=== PATIENT | female | born 1985 | race Caucasian/White ===

== ENCOUNTER 2019-06-04 02:58 | Emergency (ER) | payer OTHER ==
[2019-06-04] MEDS ORDERED: diazePAM 2 MG TABLET PO ONE (03:05)
--- NOTE | 2019-06-04 03:07 | PDOC ---
History of Present Illness - General Stated Complaint: SOB - History of Present Illness Initial Comments: 06/04/19 03:27 34 year old woman with a history of bipolar disorder(off Risperidone) who presents with shortness of breath and feeling like she is going to . Patient' s father reports that she is a heavy smoker (3ppd) and drinker (6 pack per day) and that she has been ill for the past 2 weeks with vomiting and productive cough, but he does not know if she has had a fever. The patient will provide any further history and states that she " is ." ROS - unable to obtain, patient unwilling to participate PE GENERAL: Awake, alert, in no acute distress HEAD: No signs of trauma, normocephalic, atraumatic EYES: EOMI, sclera anicteric, conjunctiva clear ENT: oropharynx clear without exudates. Moist mucosa NECK: Normal ROM, supple LUNGS: No distress, speaks full sentences, coarse breath sounds HEART: Regular rate and rhythm, normal S1 and S2, no murmurs, rubs or gallops, peripheral pulses normal and equal bilaterally. ABDOMEN: Soft, nontender No guarding, no rebound. No masses EXTREMITIES : Normal inspection, Normal range of motion, no edema. No clubbing or cyanosis. NEUROLOGICAL: Cranial nerves II through XII grossly intact. Normal speech, normal gait, no focal sensorimotor deficits SKIN: Warm, Dry, normal turgor, no rashes or lesions noted MDM DDX including but not limited to: r/o pna vs copd anxiety attack ED Course: labs, preg, ns cxr labs wnl cxr with no acute findings d/c with internal medicine clinic or pcp f/u psych referral father agrees with alyssa Estrada PGY2 Emergency Medicine Past History - Past Medical History Allergies/Adverse Reactions: Allergies Allergy/AdvReac Type Severity Reaction Status Date / Time No Known Allergies Allergy Verified 07/28/15 11:34 Home Medications: Ambulatory Orders Risperidone [Risperdal] 3 mg PO DAILY #6 tablet 07/28/15 Psychiatric Problems: Yes (paranoid schiophrenia) - Psycho Social/Smoking Cessation Hx Smoking History: Current every day smoker Number of Cigarettes Smoked Daily: 20 Hx Alcohol Use: No Drug/Substance Use Hx: No Substance Use Type: None ED Treatment Course - LABORATORY CBC & Chemistry Diagram: 06/04/19 04:00 06/04/19 04:00 Discharge - Discharge Information Problems reviewed: Yes Clinical Impression/Diagnosis: Shortness of breath Condition: Stable Disposition: HOME - Admission No - Follow up/Referral Referrals: Ward Azar MD [Staff Physician] - [facility] [place] [facility] [place] [Provider Group] - Patient Discharge Instructions Patient Printed Discharge Instructions: DI for Shortness of Breath, DI for Bipolar Disorder Additional Instructions: You were seen in the ED for complaints of shortness of breath In the ED you were evaluated with labwork and imaging Your results were unremarkable There does not appear to be an acute need for immediate hospitalization. You are advised to follow up with your Primary Care Physician within 1 week. You were given a referral to Psychiatry and the Internal Medicine Clinic and should follow up within 1 week. Return to the ED immediately if you experience shortness of breath, chest pain, fevers or any other concerning symptoms - Post Discharge Activity
[2019-06-04 03:22] VITALS: TEMP 98.1; BMI 23.5
--- NOTE | 2019-06-04 03:22 | PDOC ---
Attending Attestation - Resident Resident Name: Jazmin Estrada - ED Attending Attestation I have performed the following: I have examined & evaluated the patient, The case was reviewed & discussed with the resident, I agree w/resident's findings & plan - HPI HPI: 06/04/19 03:22 Pt is hyperventilatinga dn yelling that she cannot breathe. Pt smokes heavily and drinks alcohol, as per her dad. She is having a panic attach. - Physicial Exam PE: 06/04/19 20:56 Pt smells of nicotine and cigarettes. Pt bipolar and anxious Pt breathing normally; clear lungs; however hyperventilating Pt has no abd pain and no flank pain no edema of extremities and neuologically intact - Medical Decision Making 06/04/19 05:34 2mg valium worked for patient Pt smokes 2-3 PPD and she drinks alcohol. 06/04/19 20:58 Pt feels better with treatment in the ER and she is ready to go home. Home with her dad.
[2019-06-04] MEDS ORDERED: SODIUM CHLORIDE 0.9% 500 ML INFUS.BAG IV ONE (03:36)
[2019-06-04] MEDS ORDERED: diazePAM 2 MG TABLET ONE (03:47)
[2019-06-04 04:09] LABS: BASO % 0.7 % (0-2.0); EOS % 0.3 % (0-4.5); HEMATOCRIT 49.3 % (32.4-45.2); HEMOGLOBIN 16.8 GM/dL (10.7-15.3); LYMPH % 20.7 % (8-40); MCH 33.4 pg (25.7-33.7); MCHC 34.1 g/dl (32.0-36.0); MEAN CELL VOLUME 98.2 fl (80-96); MEAN PLT VOLUME 8.1 fl (7.5-11.1); MONO % 9.9 % (3.8-10.2); NEUT % 68.4 % (42.8-82.8); PLATELET COUNT 251 K/MM3 (134-434); RBC 5.02 M/mm3 (3.60-5.2); RDW 12.3 % (11.6-15.6); WHITE BLOOD COUNT 6.2 K/mm3 (4.0-10.0)
[2019-06-04 04:43] LABS: BILIRUBIN,TOTAL 0.9 mg/dL (0.2-1); BLOOD UREA NITROGEN 4.7 mg/dL (7-18); CALCIUM 9.5 mg/dL (8.5-10.1); CREATININE 0.6 mg/dL (0.55-1.3); POTASSIUM 4.1 mmol/L (3.5-5.1); TOT PROT 7.7 g/dl (6.4-8.2)
[2019-06-04 06:11] VITALS: BP 110/63; PULSE 59
== END 2019-06-04 06:00 | disposition home or self-care (01) ==
LOC: JER 02:58
DX: F41.0 Panic disorder [episodic paroxysmal anxiety] (principal); F31.9 Bipolar disorder, unspecified; F10.10 Alcohol abuse, uncomplicated; F17.210 Nicotine dependence, cigarettes, uncomplicated
CPT/HCPCS: 36415; 71045-TC-FY; 80053; 84702; 85025; 99283-25

== ENCOUNTER 2020-05-09 09:32 | Emergency (ER) | payer OTHER ==
[2020-05-09 10:48] VITALS: BMI 22.7
[2020-05-09 11:02] LABS: BASO % 1.5 % (0-2.0); HEMATOCRIT 51.9 % (32.4-45.2); HEMOGLOBIN 17.6 GM/dL (10.7-15.3); LYMPH % 3.6 % (8-40); MCH 34.4 pg (25.7-33.7); MCHC 33.9 g/dl (32.0-36.0); MEAN CELL VOLUME 101.5 fl (80-96); MEAN PLT VOLUME 7.9 fl (7.5-11.1); MONO % 7.8 % (3.8-10.2); NEUT % 87.1 % (42.8-82.8); PH,URINE 5.5 (5.0-8.0); PLATELET COUNT 245 K/MM3 (134-434); RBC 5.11 M/mm3 (3.60-5.2); RDW 14.3 % (11.6-15.6); URINE APPEARANCE CLEAR; URINE BILIRUBIN NEGATIVE (NEGATIVE); URINE COLOR YELLOW; URINE GLUCOSE (UA) 1+ (NEGATIVE); URINE KETONE TRACE (NEGATIVE); URINE LEUK ESTERASE NEGATIVE (NEGATIVE); URINE NITRITE NEGATIVE (NEGATIVE); URINE PROTEIN NEGATIVE (NEGATIVE); URINE UROBILINOGEN 0.2 mg/dL (0.2-1.0); WHITE BLOOD COUNT 8.1 K/mm3 (4.0-10.0)
[2020-05-09 11:15] LABS: CHLORIDE 100 mmol/L (98-107); POTASSIUM 4.1 mmol/L (3.5-5.1); SODIUM 137 mmol/L (136-145)
[2020-05-09 11:16] LABS: COCAINE, UR NEGATIVE ng/ml (CUTOFF=300); URINE BENZODIAZEPINES NEGATIVE ng/ml (CUTOFF=200)
[2020-05-09 11:17] LABS: METHADONE, UR NEGATIVE ng/ml (CUTOFF=300); OPIATES, URI NEGATIVE ng/ml (CUTOFF=300); PHENCYCLIDINE,URINE NEGATIVE ng/ml (CUTOFF=25); URINE AMPHETAMINES NEGATIVE ng/ml (CUTOFF=500)
[2020-05-09 11:18] LABS: ALBUMIN 4.1 g/dl (3.4-5.0); ANION GAP 12 MMOL/L (8-16); CALCIUM 9.4 mg/dL (8.5-10.1); CO2 25 mmol/L (21-32); GLUCOSE,RANDOM 183 mg/dL (74-106); URINE BARBITURATES NEGATIVE ng/ml (CUTOFF=200)
[2020-05-09 11:21] LABS: CREATININE 0.9 mg/dL (0.55-1.3); SGOT/AST 95 U/L (15-37); SGPT/ALT 124 U/L (13-61)
[2020-05-09 11:23] LABS: ALK PHOS 84 U/L (45-117); BILIRUBIN,TOTAL 0.5 mg/dL (0.2-1); TOT PROT 8.5 g/dl (6.4-8.2)
[2020-05-09 11:27] LABS: N-TERMINAL BNP 19.9 pg/ml (5-125)
[2020-05-09] MEDS ORDERED: SODIUM CHLORIDE 1,000 ML IV STA (12:43)
[2020-05-09 14:21] VITALS: BP 125/72; PULSE 69; TEMP 97.2
== END 2020-05-09 14:20 | disposition home or self-care (01) ==
LOC: JER 09:32
PROC: 3E0337Z Introduction of Electrolytic and Water Balance Substance into Peripheral Vein, Percutaneous Approach (ICD-10-PCS; principal; 2020-05-09)
DX: R06.02 Shortness of breath (principal); F10.10 Alcohol abuse, uncomplicated
CPT/HCPCS: 36415; 71046-TC-FY; 80053; 80307; 81003; 83880; 84484; 84703; 85025; 87086; 93005; 93010; 96360; 99285-25

== ENCOUNTER 2020-05-20 03:20 | Emergency (ER) | payer OTHER ==
[2020-05-20 03:37] VITALS: BMI 21.9
[2020-05-20] MEDS ORDERED: SODIUM CHLORIDE 0.9% 500 ML INFUS.BAG IV ONE (04:06)
[2020-05-20 04:56] LABS: BASO % 1.4 % (0-2.0); EOS % 0.2 % (0-4.5); HEMATOCRIT 53.5 % (32.4-45.2); HEMOGLOBIN 17.8 GM/dL (10.7-15.3); LYMPH % 9.8 % (8-40); MCH 34.1 pg (25.7-33.7); MCHC 33.4 g/dl (32.0-36.0); MEAN CELL VOLUME 102.3 fl (80-96); MEAN PLT VOLUME 8.6 fl (7.5-11.1); MONO % 12.2 % (3.8-10.2); NEUT % 76.4 % (42.8-82.8); PLATELET COUNT 200 K/MM3 (134-434); RBC 5.23 M/mm3 (3.60-5.2); RDW 13.7 % (11.6-15.6); WHITE BLOOD COUNT 7.2 K/mm3 (4.0-10.0)
[2020-05-20 05:08] LABS: POTASSIUM 4.7 mmol/L (3.5-5.1)
[2020-05-20 05:11] LABS: ALBUMIN 4.3 g/dl (3.4-5.0); BLOOD UREA NITROGEN 4.4 mg/dL (7-18); MAGNESIUM 2.1 mg/dL (1.8-2.4)
[2020-05-20 05:14] LABS: CREATININE 0.7 mg/dL (0.55-1.3)
[2020-05-20 05:15] LABS: TOT PROT 8.5 g/dl (6.4-8.2)
[2020-05-20] MEDS ORDERED: diazePAM 2 MG TABLET PO ONE (05:49)
[2020-05-20] MEDS ORDERED: diazePAM 2 MG TABLET ONE (05:56)
[2020-05-20] MEDS ORDERED: HALOPERIDOL LACTATE 5 MG/ML IM ONE (07:17)
[2020-05-20] MEDS ORDERED: HALOPERIDOL LACTATE 5 MG/ML ONE (07:22)
[2020-05-20 08:08] VITALS: BP 149/96; PULSE 89; TEMP 97.6
== END 2020-05-20 08:35 | disposition home or self-care (01) ==
LOC: JER 03:20
PROC: 3E023NZ Introduction of Analgesics, Hypnotics, Sedatives into Muscle, Percutaneous Approach (ICD-10-PCS; principal; 2020-05-20)
DX: F10.10 Alcohol abuse, uncomplicated (principal)
CPT/HCPCS: 36415; 70450-TC; 71045-TC-FY; 80053; 83735; 84100; 85025; 93005; 93010; 96372; 99285-25; C9803; U0003

== ENCOUNTER 2023-04-27 16:45 | Emergency (ER) | payer OTHER ==
[2023-04-27 18:13] VITALS: BP 137/95; PULSE 80; RESP 18; TEMP 97.6; BMI 20.9
== END 2023-04-27 17:10 | disposition left against medical advice (07) ==
LOC: FER 16:45
DX: M79.672 Pain in left foot (principal); F10.10 Alcohol abuse, uncomplicated; Y90.9 Presence of alcohol in blood, level not specified
CPT/HCPCS: 99283-25